=== PATIENT | male | born 1945 | race Caucasian/White ===

== ENCOUNTER 2023-02-23 07:44 | Emergency (ER) | payer MEDICARE, OTHER ==
[2023-02-23] MEDS ORDERED: Lidocaine 1% w/Epinephrine 1:100K 20 ML VIAL ONE (08:04)
[2023-02-23] MEDS ORDERED: Bacitracin 1 PK ONE (08:04)
== END 2023-02-23 08:37 | disposition home or self-care (01) ==
LOC: MADERS 07:44
DX: S51.012A Laceration without foreign body of left elbow, initial encounter (principal); I10 Essential (primary) hypertension; Z79.899 Other long term (current) drug therapy; X58.XXXA Exposure to other specified factors, initial encounter
CPT/HCPCS: 12002